=== PATIENT | male | born 1960 | race Caucasian/White ===

== ENCOUNTER 2018-11-19 11:55 | Inpatient (IN) | payer OTHER ==
[2018-11-19] MEDS ORDERED: Ketorolac INJ* 30 MG/ML 1 ML VIAL IV PUSH ONE (12:47)
[2018-11-19] MEDS ORDERED: Aspirin 81 mg CHEW TAB* 81 MG TAB.CHEW PO ONE ×2 (12:47→14:22)
[2018-11-19] MEDS ORDERED: NS 0.9% 1000 ML** 2,000 ML IV ONE (12:59)
--- NOTE | 2018-11-19 13:17 | ED ---
Dizziness - HPI Summary HPI Summary: Pt is a 58 y/o M presenting to the ED with a chief complaint of weakness. during the night, he woke up with pain that felt like heartburn that kept him up all night but eventually went away. Over the weekend, he mostly experienced pain in his back/abd, but also reports lack of concentration, nausea , decrease in appetite, and dark urine. 11/17/18, he was diaphoretic and had chills, as well as myalgias. He went to family practice where he tested negative for the flu. This morning, he went to [facility] his Rx and when he got back he was covered in sweat and felt very faint. Pt denies cough, sob, fever, rashes, joint pain, and swelling. - History Of Current Complaint Chief Complaint: EDWeakness Stated Complaint: CHEST PAIN Time Seen by Provider: 11/19/18 12:46 Hx Obtained From: Patient Onset/Duration: Gradually Timing: Intermittent Episode Lasting - minutes or hours at a time Severity Initially: Mild Severity Currently: Mild Character: Lightheaded, Weak Aggravating Factor(s): Nothing Alleviating Factor(s): Nothing Associated Signs And Symptoms: Positive: Nausea, Diaphoresis, Change In Diet - decrease, has not eaten since 11/14/18, Chills, Other: - dark urine. Negative: SOB, Fever - Allergies/Home Medications Allergies/Adverse Reactions: Allergies Allergy/AdvReac Type Severity Reaction Status Date / Time No Known Allergies Allergy Verified 06/15/18 16:00 Home Medications: Home Medications Albuterol HFA INHALER* [Ventolin HFA Inhaler*] 2 puff INH Q6H PRN 11/19/18 [ History Confirmed 11/19/18] PMH/Surg Hx/FS Hx/Imm Hx Previously Healthy: Yes Endocrine/Hematology History: Reports: Hx Diabetes - diet managed Cardiovascular History: Reports: Hx Hypertension Infectious Disease History: No Infectious Disease History: Denies: Traveled Outside the [place] in Last 30 Days - Family History Known Family History: Positive: Cardiac Disease - father and grandfather had MIs , Diabetes - Social History Alcohol Use: Rare Substance Use Type: Reports: None Smoking Status (MU): Former Smoker Review of Systems Positive: Chills, Skin Diaphoresis. Negative: Fever Negative: Shortness Of Breath, Cough Positive: Abdominal Pain, Nausea Positive: other - dark urine Positive: Myalgia. Negative: Arthralgia, Edema Negative: Rash Neurological: Other - lack of concentration Positive: Weakness All Other Systems Reviewed And Are Negative: Yes Physical Exam - Summary Physical Exam Summary: Appearance: Well-appearing, Well-nourished, lying in bed comfortably Skin: Warm, dry, no obvious rash Eyes: sclera anicteric, no conjunctival pallor ENT: mucous membranes moist, pharynx appears normal Neck: Supple, nontender Respiratory: Clear to auscultation, no signs of respiratory distress Cardiovascular: Normal S1, S2. No murmurs. Normal distal pulses in tibial and radial bilaterally. Abdomen: Soft, nontender, normal active bowel sounds present Musculoskeletal: Normal, Strength/ROM Intact Neurological: A&Ox3, awake and alert, mentation is normal, speech is fluent and appropriate Psychiatric: affect is normal, does not appear anxious or depressed Triage Information Reviewed: Yes Vital Signs On Initial Exam: Initial Vitals Temp Pulse Resp BP Pulse Ox 97.8 F 80 18 108/65 96 11/19/18 11:59 11/19/18 11:59 11/19/18 11:59 11/19/18 11:59 11/19/18 11:59 Vital Signs Reviewed: Yes Diagnostics - Vital Signs Vital Signs Temp Pulse Resp BP Pulse Ox 11/19/18 13:03 16 11/19/18 11:59 97.8 F 80 18 108/65 96 - Laboratory Result Diagrams: 11/21/18 04:34 11/21/18 04:34 Lab Statement: Any lab studies that have been ordered have been reviewed, and results considered in the medical decision making process. - Radiology chest x-ray Radiology Interpretation Completed By: Radiologist Summary of Radiographic Findings: Hyperinflation, consistent with COPD. No active cardiopulmonary disease. ED physician has reviewed this report. - EKG 1200 Cardiac Rate: NL - 83bpm EKG Rhythm: Sinus Rhythm ST Segment: Normal Ectopy: None Dizzy Course/Dx - Course Course Of Treatment: Pt is a 58 y/o M presenting to the ED with a chief complaint of weakness. 11/14/18 during the night, he woke up with abd pain that felt like heartburn that eventually went away. He mostly experienced myalgias, but also reports lack of concentration, nausea, decrease in appetite, and dark urine. 11/17/18, he was diaphoretic and had chills, as well as myalgias. He went to family practice where he tested negative for the flu. This morning, he went to [facility] his Rx and when he got back he was covered in sweat and felt very faint. Pt denies cough, sob, fever, rashes, joint pain, and swelling. EKG is NSR at 83bpm, and chest x-ray shows hyperinflation, c/w COPD. - Diagnoses Provider Diagnoses: NSTEMI (non-ST elevated myocardial infarction) - Critical Care Time Critical Care Time: 30-74 min Discharge - Sign-Out/Discharge Documenting (check all that apply): Patient Departure - Discharge Plan Condition: Stable Disposition: ADMITTED TO [facility] - Billing Disposition and Condition Condition: STABLE Disposition: Admitted to [facility] - Attestation Statements Document Initiated by Caleb: Yes Documenting Scribe: Meka York Provider For Whom Caleb is Documenting (Include Credential): Paul Rudolph MD. Scribe Attestation: Meka Dash, altheaed for Paul Rudolph MD. on 11/23/18 at 0404. Scribe Documentation Reviewed: Yes Provider Attestation: The documentation as recorded by the Meka haro accurately reflects the service I personally performed and the decisions made by , Paul Rudolph MD. Status of Scribe Document: Viewed Consult Consult: 1420 - Spoke with Dr. Marti who will be the accepting physician to [facility] [place]. 1422 - Spoke with Dr. Goel of cardiology who agrees with the pt's plan of care.
[2018-11-19 13:20] LABS: ABS Basophils 0.1 10^3/ul (0-0.2); ABS Eosinophils 0.3 10^3/ul (0-0.6); ABS Lymphocytes 1.2 10^3/ul (1.0-4.8); ABS Monocytes 1.4 10^3/ul (0-0.8); ABS Neutrophils 8.6 10^3/ul (1.5-7.7); ABS Nucleated RBC 0 10^3/ul; Eosinophil % 2.6 %; Hematocrit 43 % (42-52); Hemoglobin 14.1 g/dl (14.0-18.0); Lymphocyte % 10.1 %; Mean Corpuscular HGB Conc 33 g/dl (31-36); Mean Corpuscular Hemoglobin 31 pg (27-31); Mean Corpuscular Volume 92 fL (80-94); Mean Platelet Volume 7.5 fL (7.4-10.4); Nucleated Red Blood Cells % 0.1; Platelet Count 279 10^3/ul (150-450); Red Blood Count 4.65 10^6/ul (4.00-5.40); Red Cell Distribution Width 14 % (10.5-15); White Blood Count 11.6 10^3/ul (3.5-10.8)
[2018-11-19 13:27] LABS: INR 1.04 (0.77-1.02)
[2018-11-19 13:33] LABS: Albumin/Globulin Ratio 1.2 (1-3); BUN/Creatinine Ratio 23.4 (8-20); C Reactive Protein 262.05 mg/L (<8.01); Calcium 8.5 mg/dL (8.6-10.3); EGFR Non-African American 67.8 (>60); Globulin 3.4 g/dL (2-4); Potassium 3.4 mmol/L (3.5-5.0); Total Bilirubin 0.7 mg/dL (0.2-1.0); Total Protein 7.4 g/dL (6.4-8.9)
[2018-11-19 13:38] LABS: Troponin I 7.92 ng/mL (<0.04)
[2018-11-19] MEDS ORDERED: Heparin DRIP 25,000 UNITS(*) 25,000 UNITS/500 ML BAG IV SCH (14:30)
[2018-11-19] MEDS ORDERED: Heparin VIAL(*) 5000 UNITS/ML VIAL (FIVE THOUSAND) ONE (15:09)
[2018-11-19] MEDS ORDERED: Acetaminophen TAB* 325 MG PO PRN (15:22)
[2018-11-19] MEDS ORDERED: Ticagrelor* 90 MG TAB PO ONE (15:23)
[2018-11-19] MEDS ORDERED: NS 0.9% 1000 ML** 1,000 ML IV SCH (15:30)
[2018-11-19 16:20] LABS: HDL Cholesterol 38.6 mg/dL
[2018-11-19] MEDS ORDERED: Albuterol HFA INHALER* 8 gm MDI INH PRN (16:20)
[2018-11-19] MEDS ORDERED: Albuterol (2.5 MG) 0.5 % CONC 2.5 MG/0.5 ML NEB.SOLN (ICU and ED only) INH ONE (16:21)
[2018-11-19 16:28] LABS: Troponin I 9.05 ng/mL (<0.04)
[2018-11-19] MEDS ORDERED: Potassium Chlor TAB* 20 MEQ TAB.ER PO ONE (16:30)
--- NOTE | 2018-11-19 16:30 | ECHO ---
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 The study is technically limited due to poor parasternal windows. The study is technically limited due to the patient's smoking history. Left Ventricle: The left ventricular chamber size is normal. There are multiple regional wall motion abnormalities. There is moderate to severely decreased left ventricular systolic function. [place] and septum move best. Posterior wall akinetic and severely hypokinetic extending to the inferior region on 2 chamber view. Akinesis of the mid lateral wall $ chamber and short axis view) and hypokinesis of the anterior wall on the 2 chamber view. The estimated ejection fraction is 30-35%. Abnormal left ventricular diastolic function is observed. The basal anterior, basal inferolateral, mid anterior, mid inferior, and apical inferior wall segments are hypokinetic (score 2). The basal inferior, mid anterolateral, mid inferolateral, and apical lateral wall segments are akinetic (score 3). Overall wallmotion score index is 1.81 Left Atrium: The left atrial chamber size is normal. Right Ventricle: The right ventricular cavity size is normal. The right ventricular global systolic function is mildly reduced. Right Atrium: The right atrial cavity size is normal. Aortic Valve: The aortic valve structure is not well visualized. The aortic valve leaflets are mildly thickened. There is a trace of aortic regurgitation. There is no evidence of aortic stenosis. Mitral Valve: The mitral valve leaflets are mildly thickened. There is mild mitral regurgitation. There is no evidence of mitral stenosis. Tricuspid Valve: The tricuspid valve leaflets are normal. There is trace tricuspid regurgitation. Unable to estimate the right ventricular systolic pressure. There is no tricuspid stenosis. Pulmonic Valve: The pulmonic valve structure is not well visualized. There is no evidence of pulmonic regurgitation. There is no pulmonic stenosis. Pericardium: There is no significant pericardial effusion. A pericardial fat pad is visualized. Aorta: The ascending aorta is not well visualized. There is no dilatation of the aortic arch. There is no dilation of the aortic root. Pulmonary Artery: The main pulmonary artery is not well visualized. Venous: The inferior vena cava appears normal in size. There is a greater than 50% respiratory change in the inferior vena cava dimension. Conclusions The left ventricular chamber size is normal. There are multiple regional wall motion abnormalities. There is moderate to severely decreased left ventricular systolic function. [place] and septum move best. Posterior wall akinetic and severely hypokinetic extending to the inferior region on 2 chamber view. Akinesis of the mid lateral wall $ chamber and short axis view) and hypokinesis of the anterior wall on the 2 chamber view. The estimated ejection fraction is 30-35%. Abnormal left ventricular diastolic function is observed. The right ventricular global systolic function is mildly reduced. The aortic valve leaflets are mildly thickened with trace aortic regurgitation. There is mild mitral regurgitation. There is trace tricuspid regurgitation. No prior echo to compare. Measurements Name Value Normal Range RVIDd (AP) 2D 3.2 cm (0.9 - 2.6) RVDdMajor (2D) 2.4 cm (2.2 - 4.4) RAd ISD 4CH 4.4 cm (3.4 - 4.9) RA (A4C)W 3.9 cm (2.9 - 4.6) IVSd (2D) 1 cm (0.6 - 1) LVPWd (2D) 1 cm (0.6 - 1) LVIDd (2D) 5.4 cm (3.6 - 5.4) LVIDs (2D) 4.7 cm - LV FS (2D) 13 % (25 - 45) Aortic Annulus 1.9 cm (1.4 - 2.6) Ao root diameter (2D) 3 cm (2.1 - 3.5) Aortic arch 2.6 cm (1.8 - 3.4) LA dimension (AP) 2D 3.8 cm (2.3 - 3.8) LAd ISD 4CH 4.9 cm (2.9 - 5.3) LA ISD 4CH W 3.5 cm (2.5 - 4.5) Name Value Normal Range LA ESV BP (A/L) index 18.9 ml/m2 - Name Value Normal Range MV E-wave Vmax 1.1 m/sec - MV deceleration time 158 msec - MV A-wave Vmax 0.79 m/sec - MV E:A ratio 1.3 ratio - LV septal e' Vmax 0.07 m/sec - LV lateral e' Vmax 0.06 m/sec - LV E:e' septal ratio 15.7 ratio - LV E:e' lateral ratio 18.3 ratio - Name Value Normal Range AV Vmax 1.4 m/sec - AV VTI 22.6 cm - AV peak gradient 7 mmHg - AV mean gradient 4 mmHg - LVOT Vmax 1.1 m/sec - LVOT VTI 21.4 cm - LVOT peak gradient 5 mmHg - LVOT mean gradient 3 mmHg - NOAH Vmax 1 m/sec - Name Value Normal Range IVC diameter 1.8 cm - Name Value Normal Range PV Vmax 0.79 m/sec - Wallmotion BAS Normal BA Hypokinetic BAL Normal MARCELO Hypokinetic BI Akinetic BIS Normal MAS Normal MA Hypokinetic MAL Akinetic MIL Akinetic MS Hypokinetic MIS Normal Normal AA Normal AL Akinetic AI Hypokinetic APEX Normal
[2018-11-19] MEDS ORDERED: Heparin VIAL(*) 5000 UNITS/ML VIAL (FIVE THOUSAND) IV PRN (17:32)
[2018-11-19 17:56] LABS: Urine Appearance Clear; Urine Bilirubin Negative (Negative); Urine Blood Negative (Negative); Urine Color Yellow; Urine Glucose Negative (Negative); Urine Ketones Trace (Negative); Urine Nitrite Negative (Negative); Urine Protein Negative (Negative); Urine Specific Gravity 1.009 (1.010-1.030); Urine Urobilinogen Negative (Negative)
[2018-11-19] MEDS: Atorvastatin* 80 MG TAB PO SCH (19:06)
--- NOTE | 2018-11-19 19:16 | CONS ---
CC: Lani Lund; Hospitalist CARDIOLOGY CONSULTATION: DATE OF CONSULT: 11/19/18 REASON FOR CONSULTATION: ED called for elevated troponin. CHIEF COMPLAINT: The patient's chief complaint today is dizziness. HISTORY OF PRESENT ILLNESS: Mr. Bassett is a 58-year-old gentleman with no identified prior cardiac history. He was in his usual state of health until Saturday, 5 days ago, when he awoke with some indigestion in the middle of the night. Subsequently, he just felt a bit under the weather, like he had the flu with poor appetite and myalgias. On Saturday, he said he had chills and was sweaty, and he saw his doctor on Saturday, where they thought he might have influenza. Per verbal report from the patient, the influenza screen was negative. He was found to be wheezy, so he was given an albuterol inhaler prescription. Today, the patient and his significant other were going to get the albuterol and he became extremely dizzy, and they presented to the emergency department. In the emergency department, the patient's systolic blood pressure was in the low ranges of normal which is unusual for him and his initial troponin was elevated over 7. PAST MEDICAL HISTORY: The patient has a past medical history of: 1. Diabetes, diet controlled. 2. Hypertension. 3. Dyslipidemia, the patient self-medicates with cinnamon and niacin. 4. Probable COPD, 35-year history of smoking and inspiratory shortness of breath for the last 10 years. MEDICATIONS: Outpatient medications include: 1. Lisinopril 20 mg a day. 2. He was given a prescription, but has not started albuterol 2 puffs q.6 hours. 3. Niacin. 4. Cinnamon. ALLERGIES: He is allergic to aloe and bee stings. He has no known medication allergies. FAMILY HISTORY: Positive for early atherosclerotic heart disease in his father' s side. His father having a heart attack in early 40s and multiple male relatives on his father's side having early heart attacks. His mother's side has a history of diabetes. 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 He smoked 35 years, but stopped 10 years ago. He denies significant alcohol use or recreational drug use. He has a significant other. REVIEW OF SYSTEMS: Positive for his indigestion, feeling chills, sweats, and dizziness as above. Negative for coughing, rhinorrhea. No change in bowel or bladder habits. No recent change in medications. Prior to Saturday, no decline in exercise or functional ability. He has some chronic orthopnea, but no recent PND or change in orthopnea. No history of leg heaviness or leg pain or claudication symptoms. Recent myalgias and anorexia as above. According to his significant other, he snores a lot, has episodes of apnea, and this is longstanding. All other 14-point review of systems was negative. PHYSICAL EXAM: On exam, the patient is 5 feet 9 inches, weighs 185 pounds with a BMI of 27. Blood pressure 101/65, 92/64; pulse is 72 and regular; respiratory rate is 18; oxygen saturation on room air 95%; he is afebrile at 97.8. General Appearance: Centripetally overweight, somewhat older gentleman lying at 45 degrees appears comfortable. Skin: Warm, dry. No cyanosis or rashes appreciated. HEENT: Pupils are equal and round. Mucous membranes are moist. Neck without increased JVP. No thyromegaly or lymphadenopathy with palpable carotid pulses bilaterally. Breath sounds had diffuse inspiratory and expiratory wheezing anteriorly and posteriorly. Coronary: S1, S2 regular, but distant with no murmurs or rubs appreciated. Abdomen: Rotund. Active bowel sounds. Soft, nontender. No appreciable hepatosplenomegaly, masses, or bruits. Iliac, free of bruits. Lower Extremities: Luke warm and very difficult to get distal pulses. Lower extremities are free of edema. DIAGNOSTIC STUDIES/LABORATORY DATA: White count 11.6, hemoglobin 14.1, hematocrit 43, platelets 279, increased monos, and increased neutrophils. Sodium 134, potassium 3.4, chloride 98, bicarb 27, BUN 26, creatinine 1.1, glucose 131. Calcium mildly low at 8.5. AST 43, ALT 32. CPK 336. Troponin # 1 7.92. C- reactive protein elevated at 262. BNP of 296. A 12-lead ECG showed normal sinus rhythm, 83 beats a minute, QRS axis -90, normal AV and IV conduction times. He has diffuse nonspecific ST changes. He has inverted T waves in the inferior leads and flattened biphasic T waves in the lateral leads V4 through V6. I do not have old EKGs to compare. Chest x-ray report showed hyperinflation, but no active pulmonary disease. Echocardiogram is pending. IMPRESSION: In summary, Mr. Bassett is a 58-year-old gentleman with atherosclerotic risks of diabetes, hypertension, dyslipidemia, and family history of early atherosclerotic disease, probably obstructive sleep apnea presenting with symptoms concerning for anginal equivalent of indigestion, generalized fatigue, diaphoresis, and dizziness and his blood pressure is lower than usual. For the elevated troponin and atherosclerotic risks, I have recommended he proceed to heart catheterization. We are going get an echocardiogram to evaluate for ejection fraction, wall motion abnormalities. Additionally with his elevated C-reactive protein, it is possible he does have some infectious issue and/or pericardial effusion that could also be contributing or causing the presentation and we will evaluate for that. In the interim, I am going to get an updated lipid panel, tentatively start him on a statin, stop his niacin. He has been started on heparin drip and aspirin and I would like to cautiously beta-block him probably with atenolol because of his wheezing. I think he should be treated for his wheezing as this could be contributing to cardiac stress, but we will defer to Internal Medicine on management options. Additional recommendations will be made pending the results of his echo in response to the above stabilizing measures. We will plan on repleting potassium, adding a magnesium to his labs, and unless his ejection fraction is severely depressed, we will gently hydrate him in anticipation of cardiac catheterization. [id number]/[facility] #: [id number] ADDENDUM: Echo revealed posterior lateral and anterior wall motion abnormalities. EF approx. 35%. Plan is for cath in AM. ANTONY
--- NOTE | 2018-11-19 20:17 | HP ---
CC: Lani Lund NP; Dr. Goel; Dr. Piña * HISTORY AND PHYSICAL: DATE OF ADMISSION: 11/19/18 PRIMARY CARE PROVIDER: Lani Lund NP. CHIEF COMPLAINT: Feeling weak and tired. HISTORY OF PRESENT ILLNESS: Carson Bassett is a 58-year-old male with history of hypertension, diabetes that is diet controlled, who presented to the hospital complaining of generalized weakness. The patient stated that he developed chills and epigastric pain on Saturday, which was 5 days ago. He stated that the epigastric pain lasted overall approximately 4 hours intermittently and was relieved eventually with ibuprofen. It occurred at midnight when the patient was lying in bed. The pain did not recur. Ever since then, the patient had been complaining of fatigue and having intermittent chills. For that, he went to see his primary care provider yesterday and had a flu swab that was negative. He continued to feel weak and he came into the ED for evaluation. Here, he was noted to have troponin of 7 and EKG changes of the inferior wall. He is going to be admitted with a diagnosis of acute coronary syndrome. PAST MEDICAL HISTORY: 1. History of hypertension. 2. History of diabetes, diet controlled. PAST SURGICAL HISTORY: The patient denies any surgeries. HOME MEDICATIONS: Include: 1. Albuterol inhaler 2 puffs every 6 hours p.r.n. 2. Lisinopril 20 mg daily. ALLERGIES: Include allergy to BEE STINGS and ALOE VERA. FAMILY HISTORY: Positive for mother's side with diabetes and father who had an acute WI in his 40s. SOCIAL HISTORY: The patient has a history of 30-pack year smoking, quit in 2009. He drinks an occasional alcoholic beverage, but not daily. He denies any drug use. He lives with his , Maryse, who would be his surrogate. 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 REVIEW OF SYSTEMS: Please see history of present illness. In addition to above mentioned, the patient denies any shortness of breath. He stated that he had been wheezing ever since he quit smoking 10 years ago. The patient currently denies chest pain. All remaining 12 systems were reviewed with the patient and apart from the ones mentioned here and mentioned in history of present illness were negative. PHYSICAL EXAMINATION GENERAL: The patient is a very pleasant 58-year-old male, who is in no acute distress. Alert, awake, and oriented x3. VITAL SIGNS: Blood pressure of 102/69, heart rate of 74 and regular, respiratory rate 16, oxygen saturation 97% on room air, temperature of 99.0. HEENT: Head: Atraumatic, normocephalic. Eyes: Pupils are equal, reactive to light and accommodation. Oropharynx is clear. Mucosa moist. NECK: Supple. No JVD. No bruits bilaterally. RESPIRATORY: Occasional wheezes in bilateral mid lungs. CARDIOVASCULAR: Regular rate and rhythm. No murmur. ABDOMEN: Soft, nontender. Bowel sounds are present in all 4 quadrants. EXTREMITIES: There is no edema. Pulses are +2 bilaterally. There is no clubbing or cyanosis. NEUROLOGIC: Cranial nerves II through XII are grossly intact. Motor strength is 5/5 bilaterally. PSYCHIATRIC: The patient is pleasant and oriented x3 with no evidence of anxiety or depression. DIAGNOSTIC STUDIES/LAB DATA: Laboratory data showed sodium of 134, potassium of 3.4, chloride 98, carbon dioxide 27, BUN 26, creatinine 1.1. Liver function tests showed AST slightly high at 43, otherwise ALT was 32, alkaline phosphatase of 72. Total CPK was 336, troponin of 7.9, C-reactive protein of 262 , brain natriuretic peptide was 296. INR was 1.04, D-dimer was 326. Portable chest x-ray, impression: "Hyperinflation consistent with COPD. No active cardiopulmonary disease." The patient's EKG showed normal sinus rhythm with heart rate of 83 beats per minute with negative T-waves in leads II, III and aVF. ASSESSMENT AND PLAN: 1. A 58-year-old male with history of diabetes that is diet controlled and hypertension, presents with elevated troponin and symptoms of likely viral illness. At this point, the patient likely had acute coronary syndrome when trying to recover from viral illness. Another differential is viral myocarditis. The preliminary echocardiogram report showed inferior/posterior wall hypokinesis, which would make acute coronary syndrome in recent past more likely. I suspect the patient has had an acute myocardial infarction probably on Saturday when he had epigastric pain. At this point, Dr. Goel already consulted on the patient and discussed the case with Dr. Piña. The patient is going to be treated with Brilinta and aspirin. He is already placed on heparin drip. He is going to be placed n.p.o. in the morning for cardiac catheterization. 2. In regards to the patient's history of diabetes, the patient is going to have hemoglobin A1c obtained. He is going to be placed on fingersticks twice a day. So far, it seems that the patient's sugars had been rather well controlled with diet. 3. Fasting lipid profile is also going to be obtained in the morning. 4. The patient's elevated C-reactive protein is likely related to ongoing infection and it appears to be viral infection. The patient stated that his flu test was negative yesterday at his primary care provider's office. Nevertheless, blood cultures are going to be obtained and the patient is going to be observed. He also appears mildly dehydrated and he is going to be provided with intravenous fluids. 5. For DVT prophylaxis, the patient is going to be placed on heparin drip as above mentioned. 6. The patient's code status is full. His surrogate is his . TIME SPENT: Approximately 65 minutes were spent on admission of this patient, more than half that time was spent [id number] with the patient during the interview and physical exam. [id number]/[facility] #: [id number] ANTONY
[2018-11-19] MEDS: Ticagrelor* 90 MG TAB PO SCH (20:53)
[2018-11-20] MEDS: Ramipril CAP* 2.5 MG PO SCH ×2 (00:31→07:56)
[2018-11-20 04:52] LABS: Hematocrit 38 % (42-52); Hemoglobin 12.9 g/dl (14.0-18.0); Mean Corpuscular HGB Conc 34 g/dl (31-36); Mean Corpuscular Hemoglobin 31 pg (27-31); Mean Corpuscular Volume 92 fL (80-94); Mean Platelet Volume 7.5 fL (7.4-10.4); Platelet Count 310 10^3/ul (150-450); Red Blood Count 4.12 10^6/ul (4.00-5.40); Red Cell Distribution Width 14 % (10.5-15); White Blood Count 8.7 10^3/ul (3.5-10.8)
[2018-11-20 05:15] LABS: BUN/Creatinine Ratio 20.2 (8-20); Calcium 8.2 mg/dL (8.6-10.3); EGFR African American 113.2 (>60); EGFR Non-African American 93.5 (>60); Potassium 3.7 mmol/L (3.5-5.0)
[2018-11-20 05:21] LABS: Troponin I 9.14 ng/mL (<0.04)
[2018-11-20] MEDS: Ticagrelor* 90 MG TAB PO SCH ×2 (07:56→20:36)
[2018-11-20] MEDS: Aspirin 81 mg CHEW TAB* 81 MG TAB.CHEW PO SCH (07:56)
[2018-11-20] MEDS ORDERED: Heparin 2 UNITS/ML IVPREMIX* 2,000 ML IV ONE (08:25)
[2018-11-20] MEDS ORDERED: Lidocaine 1% INJ* 10 MG/ML 30 ML SDV ONE (08:26)
[2018-11-20] MEDS ORDERED: Iohexol 350 (CONTRAST) 200 ML MDV IV ONE ×2 (08:26→08:39)
[2018-11-20] MEDS ORDERED: Midazolam* 1 MG/ML 10 ML VIAL (10 MG) ONE (08:39)
[2018-11-20] MEDS ORDERED: fentaNYL* 50 MCG/ML 2 ML VIAL (100 MCG VIAL) ONE (08:39)
[2018-11-20] MEDS ORDERED: nitroGLYCERIN DRIP* 25,000 MCG/250 ML BTL ONE (08:39)
[2018-11-20] MEDS ORDERED: Heparin(*) 1000 UNIT/ML 10 ML VIAL CATH LAB IV ONE (08:39)
[2018-11-20] MEDS ORDERED: VERAPAMIL 2.5 MG/ML 2 ML VIAL ** 5 mg/2 ml ONE (08:39)
[2018-11-20] MEDS ORDERED: Bivalirudin(*) 250 MG VIAL ONE (09:22)
[2018-11-20] MEDS ORDERED: Nitroglycerin TAB 0.4 MG* 0.4 MG TAB SL PRN (11:46)
[2018-11-20] MEDS ORDERED: NS 0.9% 1000 ML** 400 ML IV SCH (12:00)
[2018-11-20] MEDS ORDERED: Carvedilol TAB* 6.25 MG PO SCH (12:00)
[2018-11-20] MEDS ORDERED: Metoprolol Tartrate TAB* 25 MG PO SCH (12:00)
[2018-11-20] MEDS ORDERED: NS 0.9% 1000 ML** 250 ML IV SCH (12:30)
--- NOTE | 2018-11-20 13:03 | PN ---
Subjective Date of Service: 11/20/18 Interval History: f/u NTEMI - s/p PCI today to subtotal pRCA, residual small vessel diagonal disease - No current CP or dyspnea Medications Active Medications: Acetaminophen (Tylenol Tab*) 650 mg PO Q4H PRN PRN Reason: FEVER/PAIN Albuterol (Ventolin Hfa Inhaler*) 1 puff INH Q4H PRN PRN Reason: SOB/WHEEZING Aspirin (Aspirin 81 Mg Chew Tab*) 81 mg PO DAILY [facility] Last Admin: 11/20/18 07:56 Dose: 81 mg Atorvastatin Calcium (Lipitor*) 80 mg PO 1700 [facility] Last Admin: 11/19/18 19:06 Dose: 80 mg Sodium Chloride (Ns 0.9% 1000 Ml) 250 mls @ 50 mls/hr IV .50 ML/HR FOR 5 HRS [facility] Stop: 11/20/18 17:31 Lisinopril (Prinivil Tab*) 2.5 mg PO DAILY [facility] Metoprolol Succinate (Toprol Xl Tab*) 25 mg PO BID [facility] Nitroglycerin (Nitroglycerin Tab 0.4 Mg*) 0.4 mg SL Q5M PRN PRN Reason: ANGINA Ticagrelor (Brilinta*) 90 mg PO BID [facility] Last Admin: 11/20/18 07:56 Dose: 90 mg Objective Vital Signs: Temp Pulse Resp BP Pulse Ox 99.4 F 76 19 113/69 97 11/20/18 04:00 11/20/18 12:01 11/20/18 12:01 11/20/18 12:00 11/20/18 12:01 Oxygen Devices in Use Now: None Appearance: nad, pleasant Neck: Trachea Midline Respiratory: Symmetrical Chest Expansion and Respiratory Effort, Clear to Auscultation Cardiovascular: NL Sounds; No Murmurs; No JVD, RRR, No Edema Abdominal: NL Sounds; No Tenderness; No Distention Extremities: No Edema, - - cath site not examined Skin: No Rash or Ulcers Neurological: Alert and Oriented x 3 Laboratory Results: 11/20/18 04:30 11/20/18 04:30 INR (Anticoag Therapy) 1.04 (0.77-1.02) H 11/19/18 13:05 APTT 39.1 seconds (26.0-36.3) H 11/20/18 04:30 Total Bilirubin 0.70 mg/dL (0.2-1.0) 11/19/18 13:05 AST 43 U/L (13-39) H 11/19/18 13:05 ALT 32 U/L (7-52) 11/19/18 13:05 Alkaline Phosphatase 72 U/L (34-104) 11/19/18 13:05 B-Natriuretic Peptide 296 pg/mL (<=100) H 11/19/18 13:05 Total Protein 7.4 g/dL (6.4-8.9) 11/19/18 13:05 Albumin 4.0 g/dL (3.2-5.2) 11/19/18 13:05 Globulin 3.4 g/dL (2-4) 11/19/18 13:05 Albumin/Globulin Ratio 1.2 (1-3) 11/19/18 13:05 Triglycerides 64 mg/dL 11/19/18 15:56 Cholesterol 125 mg/dL 11/19/18 15:56 LDL Cholesterol 74 mg/dL 11/19/18 15:56 HDL Cholesterol 38.6 mg/dL 11/19/18 15:56 11/19/18 11/19/18 11/19/18 13:05 15:56 19:07 Troponin I 7.92 H* 9.05 H* 8.24 H* 11/20/18 04:30 Troponin I 9.14 H* hgba1c 6.2 Diagnostic Imaging: echo this admission LVEF 35%, multiple WMA coronary angiogram 11/20/2018: s/p PCI/KARLI to subtotal proximal RCA (received collaterals from left system), residual small vessel obstructive diagonal lesions EKG Data: EKG post-PCI shows NSR 76 bpm, inferior ischemia appearing st/t depression, Assessment/Plan NTEMI - LVEF 35% - s/p PCI/KARLI to culprit pRCA - Residual diagonal disease - Continue aspirin 81 mg po daily - Continue brilinta 90 mg po bid - Start long acting metoprolol succinate 25 mg po bid (needs this and not tartrate at discharge given systolic LV dysfunction), ordered - Change ramipril to lisinopril 2.5 mg po daily (ordered) - Continue atorvastatin 80 mg po daily - If remains stable would be ok to transfer to telemetry tomorrow and anticipate discharge Saturday11/22/2018
--- NOTE | 2018-11-20 15:41 | PN ---
Subjective Date of Service: 11/20/18 Interval History: Pt is feeling well post catheterization. He is now waiting for bed rest to be up. He denies any pain in the groin. No CP or SOB. Objective Active Medications: Acetaminophen (Tylenol Tab*) 650 mg PO Q4H PRN PRN Reason: FEVER/PAIN Albuterol (Ventolin Hfa Inhaler*) 1 puff INH Q4H PRN PRN Reason: SOB/WHEEZING Aspirin (Aspirin 81 Mg Chew Tab*) 81 mg PO DAILY [facility] Last Admin: 11/20/18 07:56 Dose: 81 mg Atorvastatin Calcium (Lipitor*) 80 mg PO 1700 [facility] Last Admin: 11/19/18 19:06 Dose: 80 mg Sodium Chloride (Ns 0.9% 1000 Ml) 250 mls @ 50 mls/hr IV .50 ML/HR FOR 5 HRS [facility] Stop: 11/20/18 17:31 Lisinopril (Prinivil Tab*) 2.5 mg PO DAILY [facility] Metoprolol Succinate (Toprol Xl Tab*) 25 mg PO BID [facility] Nitroglycerin (Nitroglycerin Tab 0.4 Mg*) 0.4 mg SL Q5M PRN PRN Reason: ANGINA Ticagrelor (Brilinta*) 90 mg PO BID [facility] Last Admin: 11/20/18 07:56 Dose: 90 mg Vital Signs - 8 hr 11/20/18 11/20/18 11/20/18 08:00 08:01 08:30 Temperature Pulse Rate Respiratory 20 22 18 Rate Blood Pressure 115/72 (mmHg) O2 Sat by Pulse Oximetry 11/20/18 11/20/18 11/20/18 10:58 10:59 11:00 Temperature 99.0 F Pulse Rate 79 80 79 Respiratory 16 Rate Blood Pressure 117/78 114/74 (mmHg) O2 Sat by Pulse 98 98 97 Oximetry 11/20/18 11/20/18 11/20/18 11:01 11:46 12:00 Temperature 99.0 F Pulse Rate 79 75 Respiratory 21 16 Rate Blood Pressure 113/69 (mmHg) O2 Sat by Pulse 98 97 Oximetry 11/20/18 11/20/18 11/20/18 12:01 13:00 13:01 Temperature Pulse Rate 76 76 75 Respiratory 19 19 20 Rate Blood Pressure 118/76 (mmHg) O2 Sat by Pulse 97 97 97 Oximetry Oxygen Devices in Use Now: None Appearance: Middle aged male lying in bed, NAD Eyes: No Scleral Icterus Ears/Nose/Mouth/Throat: Mucous Membranes Moist Respiratory: Symmetrical Chest Expansion and Respiratory Effort, Clear to Auscultation - anteriorly Cardiovascular: NL Sounds; No Murmurs; No JVD, RRR, No Edema, - - R groin with sandbag in place Abdominal: NL Sounds; No Tenderness; No Distention Extremities: No Clubbing, Cyanosis Skin: No Nodules or Sclerosis Neurological: Alert and Oriented x 3 Result Diagrams: 11/20/18 04:30 11/20/18 04:30 Microbiology and Other Data: Microbiology 11/19/18 18:15 Nasal Screen MRSA (PCR) - Final Nasal Mrsa Not Detected Assess/Plan/Problems-Billing Mr Bassett is a 58 yo M who has a h/o HTN who presented to the ER with c/o fatigue and tiredness and was found to have a positive troponin. - Patient Problems (1) NSTEMI (non-ST elevated myocardial infarction) Current Visit: Yes Status: Acute Code(s): I21.4 - NON-ST ELEVATION (NSTEMI) MYOCARDIAL INFARCTION SNOMED Code(s): 89432701 Comment: Pt with troponin peak at 9.14. He underwent cath today and had 2 KARLI placed. EF is reduced at 35%. Continue lipitor, ASA, brilinta, metoprolol XL and lisinopril. Likely home on 11/22/18. (2) HTN (hypertension) Current Visit: Yes Status: Acute Code(s): I10 - ESSENTIAL (PRIMARY) HYPERTENSION SNOMED Code(s): 49131080 Comment: BP is under good control. Continue metoprolol XL and lisinopril. (3) Type II diabetes mellitus Current Visit: Yes Status: Acute Comment: Diet controlled. HbA1c is acceptable at 6.2%. (4) DVT prophylaxis Current Visit: Yes Status: Acute Code(s): LZP2780 - SNOMED Code(s): 488132718 Comment: SQ heparin to start tomorrow. (5) Patient is full code Current Visit: Yes Status: Acute Code(s): Z78.9 - OTHER SPECIFIED HEALTH STATUS SNOMED Code(s): 038766098
--- NOTE | 2018-11-20 16:25 | CATH ---
CC: Dr. Jessica Goel, [facility]; Lani Lund NP *; Enrike Streeter, * CARDIAC CATHETERIZATION REPORT AND INTERVENTIONAL REPORT: DATE OF PROCEDURE: 11/20/18 - ROOM #ICU-11 PRIMARY CARE PHYSICIAN: Lani Lund NP. INDICATIONS FOR THE PROCEDURE: Patient presents with pfj-IE-wgnktyhlp myocardial infarction with qqxhvcyy-rt-[id number] left ventricular systolic dysfunction on echocardiogram assessed for the presence of coronary artery disease. PROCEDURE: Coronary arteriography, left heart catheterization, intervention into proximal and mid right coronary artery with balloon angioplasty and placement of a 4.0 x 20 mm long Synergy stent proximally overlapped with a 4.0 x 28 mm long Synergy drug-eluting stent in the mid portion of the right coronary artery postdilated to 4.2 mm. CONSENT: The patient was interviewed and examined in the intensive care unit, where the risks and benefits were explained to him and his family. He understood them and wished to proceed. APPROACH UTILIZED: The right radial artery was initially assessed in the intensive care unit by ultrasound and found to be of an acceptable size. However, the reverse Barbeau showed very poor ulnar flow in the right radial artery area. As such, the decision was made to go from the right femoral artery approach. PRECARDIAC CATHETERIZATION LABORATORY RESULTS: Hemoglobin and hematocrit of 12.9 and 38 with a platelet count of 310,000. BUN and creatinine of 17 and 0.8 , sodium 136, potassium 3.7, chloride 105, bicarb 23. INR of 1.0. EQUIPMENT UTILIZED: 1. Right femoral artery sheath - a 11 cm 5-Ethiopian sheath initially, switched to a 6.5-Ethiopian Merit Prelude sheath for the interventional procedure. 2. Diagnostic coronary catheters included a 5-Ethiopian FL4 and FL3.5 curved catheters and a 5-Ethiopian FR4 curved catheter. 3. Guiding views were obtained utilizing a 6-Ethiopian ART 4 curved catheter with side holes. 4. Interventional wires utilized included 2 exchange length All Star guide wires. 5. Balloon angioplasty catheter utilized initially included a 1.5 x 8 mm long Over- The-Wire Emerge push balloon. 6. Stents utilized: A Synergy 4.0 x 20 mm and a Synergy 4.0 x 28 mm long drug- eluting stent. 7. Postdeployment balloon inflation catheter - a 4.0 x 12 mm long Emerge balloon. 8. The diagnostic wire utilized was a 175 J-tipped wire. 9. The closure device utilized was a 6/7-Ethiopian Mynx closure device. MEDICATIONS: Given during the procedure included intracoronary nitroglycerin, an Angiomax bolus and an Angiomax drip, the patient had already received his daily 81 mg of aspirin and Brilinta. DESCRIPTION OF PROCEDURE: Patient was brought to the cardiovascular laboratory , where formal time-out was performed. He was prepped and draped in sterile fashion. The right femoral artery area was anesthetized with 1% lidocaine and the right femoral artery was cannulated with an anterior wall only approach. The sheath was placed. Coronary arteriography was performed. Of note, the right coronary catheter did traverse into the left ventricle. Left ventricular pressure with pullback was obtained. Following this, the decision was made to attempt to intervene into the right coronary artery. Guiding views were assessed. ACT was assessed and found be subtherapeutic and as such, an Angiomax bolus and Angiomax drip were started. Guiding views were obtained with the ART 4 curved 6-Ethiopian guide catheter. Attempts were made to initially traverse the subtotally/totally occluded proximal right coronary artery and were unsuccessful with just the guide wire. A support balloon was utilized (1.5 x 8 mm long push balloon) and the lesion was able to be successfully crossed. Injection was made into just the balloon to assess to make sure the balloon was intraluminal and it was found to be so. Following this, the wire was reintroduced and the balloon was pulled back and dilated at the subtotal/totally occluded area. Following this, primary stenting was performed utilizing the 4.0 x 20 mm long Synergy drug-eluting stent proximally. Of note, nitroglycerin was given to address the mid lesion to see whether or not it was secondary to spasm. Some of it appeared to be due to spasm, but it appeared to be on a fixed lesion as despite multiple intracoronary boluses, the lesion still was present and as such, this area was also stented with the 4.0 x 28 mm long Synergy drug-eluting stent. High- pressure balloon inflations were made with a 4.0 x 12 mm long catheter at the overlapping of the stents as well as proximally. The artery was then assessed in multiple views. Following this, the catheter was removed and the sheath was removed. Hemostasis was obtained with a Mynx closure device. The total contrast utilized was 140 cc of Omnipaque dye. The radiation exposure included 21.1 minutes of fluoro time. The air kerma radiation was 2151 mGy. The DAP radiation was 12,396 microgray per meter squared. RESULTS: HEMODYNAMIC DATA: Left heart catheterization - revealed central aortic pressure recorded at 103 /61 with a mean of 80. Left ventricular pressure 103 over left ventricular end- diastolic pressure of 18. CORONARY ARTERIOGRAPHY: A. Left coronary artery: 1. Left main - the left main had mild ostial narrowing of 15% to 20%. 2. Left anterior descending artery - the left anterior descending artery supplied a thin first diagonal branch followed by a slightly larger second diagonal branch. Of note, the second diagonal branch bifurcated producing a thin lateral branch and a 95% lesion in a thin medial branch. Past this, there were several thin diagonal branches, which supplied the anterolateral region. Of note, in general, the caliber of these vessels did not appear to be of a size for intervention. 3. Circumflex artery - a nondominant vessel supplying a very thin first obtuse marginal branch with a second obtuse marginal branch that trifurcated. The continuation of circumflex in the AV groove did not supply any significant vessels. Of note, collateralization was noted to the distal right coronary artery and the PDA from septal perforators of the left anterior descending artery as well as the circumflex. B. Right coronary artery - a super dominant vessel that initially was found to be subtotally to totally occluded in its proximal portion. In some views, it appears that it may have been totally occluded with bridging collaterals filling the vessel in the proximal portion demonstrating retrograde filling towards the proximal obstruction. A possible dissection plane was seen with the filling of the proximal portion in late stages of the injection. INTERVENTION INTO SUBTOTALLY/TOTALLY OCCLUDED PROXIMAL RIGHT CORONARY ARTERY: Successful reconstitution of the right coronary artery with balloon angioplasty and stent placement utilizing the 4.0 x 20 mm long Synergy drug- eluting stent proximal, with 0% residual stenosis , ANNA III flow and no dissection seen. Once the totally occluded proximal area was opened, it revealed a significant lesion in the mid portion, which underwent stenting utilizing the longer 4.0 x 28 mm long Synergy drug-eluting stent with high- pressure balloon inflations to 4.2 mm in the overlapping stented area and proximally with 0% residual stenosis, ANNA 3 flow, and no dissection seen. The right coronary artery supplied a posterior descending artery and multiple posterior left ventricular branches. There was excellent blush and venous filling noted on prolonged injection in the right coronary artery. OVERALL ASSESSMENT: Significant coronary artery disease with probable recent total occlusion of proximal LAD with perhaps bridging collateral versus microscopic antegrade channels successfully reconstituted with treatment of sequential lesions in the right coronary artery including the proximal total occlusion as well as a mid 70 % stenosis. Of note, there still is diffuse disease noted in the left coronary artery system involving the second diagonal branch, which has a 95% lesion to a mid branch and is small in caliber, not one that at this point in time I would consider intervention on. Most of his other diagonal branches are very thin in nature as well. Aggressive medical management for his LV dysfunction will be addressed as well as reassessment of LV function at some point in time after revascularization and appropriate medical management. High-dose statin therapy has been instituted in addition to dual antiplatelet therapy. [id number]/CPS #: [id number] MTDD
[2018-11-20] MEDS: Atorvastatin* 80 MG TAB PO SCH (18:23)
[2018-11-20] MEDS: Metoprolol Succinate XL TAB* 25 MG PO SCH (20:36)
[2018-11-21 04:54] LABS: ABS Basophils 0.1 10^3/ul (0-0.2); ABS Eosinophils 0.7 10^3/ul (0-0.6); ABS Lymphocytes 1.4 10^3/ul (1.0-4.8); ABS Monocytes 1.3 10^3/ul (0-0.8); ABS Neutrophils 6.4 10^3/ul (1.5-7.7); ABS Nucleated RBC 0 10^3/ul; Eosinophil % 6.8 %; Hematocrit 36 % (42-52); Hemoglobin 12.2 g/dl (14.0-18.0); Lymphocyte % 14.1 %; Mean Corpuscular HGB Conc 34 g/dl (31-36); Mean Corpuscular Hemoglobin 31 pg (27-31); Mean Corpuscular Volume 92 fL (80-94); Mean Platelet Volume 7.3 fL (7.4-10.4); Nucleated Red Blood Cells % 0; Platelet Count 343 10^3/ul (150-450); Red Blood Count 3.93 10^6/ul (4.00-5.40); Red Cell Distribution Width 14 % (10.5-15); White Blood Count 9.8 10^3/ul (3.5-10.8)
[2018-11-21 05:06] LABS: Albumin 3.4 g/dL (3.2-5.2); Albumin/Globulin Ratio 1.1 (1-3); BUN/Creatinine Ratio 22.4 (8-20); Calcium 8.2 mg/dL (8.6-10.3); EGFR African American 111.6 (>60); EGFR Non-African American 92.3 (>60); Magnesium 2.1 mg/dL (1.9-2.7); Potassium 3.8 mmol/L (3.5-5.0); Total Bilirubin 0.6 mg/dL (0.2-1.0); Total Protein 6.4 g/dL (6.4-8.9)
[2018-11-21] MEDS: Metoprolol Succinate XL TAB* 25 MG PO SCH ×2 (07:51→21:11)
[2018-11-21] MEDS: Ticagrelor* 90 MG TAB PO SCH ×2 (07:52→21:11)
[2018-11-21] MEDS: Aspirin 81 mg CHEW TAB* 81 MG TAB.CHEW PO SCH (07:52)
--- NOTE | 2018-11-21 08:26 | PN ---
Subjective Date of Service: 11/21/18 Interval History: f/u NTEMI - No cp or dyspnea - No arrhythmias reported Medications Active Medications: Acetaminophen (Tylenol Tab*) 650 mg PO Q4H PRN PRN Reason: FEVER/PAIN Albuterol (Ventolin Hfa Inhaler*) 1 puff INH Q4H PRN PRN Reason: SOB/WHEEZING Aspirin (Aspirin 81 Mg Chew Tab*) 81 mg PO DAILY [facility] Last Admin: 11/21/18 07:52 Dose: 81 mg Atorvastatin Calcium (Lipitor*) 80 mg PO 1700 [facility] Last Admin: 11/20/18 18:23 Dose: 80 mg Lisinopril (Prinivil Tab*) 10 mg PO DAILY [facility] Metoprolol Succinate (Toprol Xl Tab*) 25 mg PO BID [facility] Last Admin: 11/21/18 07:51 Dose: 25 mg Nitroglycerin (Nitroglycerin Tab 0.4 Mg*) 0.4 mg SL Q5M PRN PRN Reason: ANGINA Ticagrelor (Brilinta*) 90 mg PO BID [facility] Last Admin: 11/21/18 07:52 Dose: 90 mg Objective Vital Signs: Temp Pulse Resp BP Pulse Ox 98.8 F 75 23 112/66 96 11/21/18 07:58 11/21/18 07:01 11/21/18 07:01 11/21/18 07:00 11/21/18 07:01 Oxygen Devices in Use Now: None Appearance: nad, pleasant Neck: Trachea Midline Respiratory: Symmetrical Chest Expansion and Respiratory Effort, Clear to Auscultation Cardiovascular: NL Sounds; No Murmurs; No JVD, RRR, No Edema Abdominal: NL Sounds; No Tenderness; No Distention Extremities: No Edema, - - cath site not examined Skin: No Rash or Ulcers Neurological: Alert and Oriented x 3 Laboratory Results: 11/21/18 04:34 11/21/18 04:34 INR (Anticoag Therapy) 1.04 (0.77-1.02) H 11/19/18 13:05 APTT 39.1 seconds (26.0-36.3) H 11/20/18 04:30 Total Bilirubin 0.60 mg/dL (0.2-1.0) 11/21/18 04:34 AST 23 U/L (13-39) 11/21/18 04:34 ALT 24 U/L (7-52) 11/21/18 04:34 Alkaline Phosphatase 73 U/L (34-104) 11/21/18 04:34 B-Natriuretic Peptide 296 pg/mL (<=100) H 11/19/18 13:05 Total Protein 6.4 g/dL (6.4-8.9) 11/21/18 04:34 Albumin 3.4 g/dL (3.2-5.2) 11/21/18 04:34 Globulin 3.0 g/dL (2-4) 11/21/18 04:34 Albumin/Globulin Ratio 1.1 (1-3) 11/21/18 04:34 Triglycerides 64 mg/dL 11/19/18 15:56 Cholesterol 125 mg/dL 11/19/18 15:56 LDL Cholesterol 74 mg/dL 11/19/18 15:56 HDL Cholesterol 38.6 mg/dL 11/19/18 15:56 hgba1c 6.2 11/19/18 11/19/18 11/19/18 13:05 15:56 19:07 Troponin I 7.92 H* 9.05 H* 8.24 H* 11/20/18 04:30 Troponin I 9.14 H* Diagnostic Imaging: echo this admission LVEF 35%, multiple WMA coronary angiogram 11/20/2018: s/p PCI/KARLI to subtotal dominant proximal RCA ( received collaterals from left system), residual small vessel obstructive diagonal lesion disease EKG Data: EKG post-PCI shows NSR 76 bpm, inferior ischemia appearing st/t depression, Assessment/Plan 1. NTEMI - LVEF 35% - s/p PCI/KARLI to culprit pRCA - Residual diagonal disease 2. DM - diet controlled 3. HTN - Continue aspirin 81 mg po daily - Continue brilinta 90 mg po bid - Continue long acting metoprolol succinate 25 mg po bid (needs this and not tartrate at discharge given systolic LV dysfunction) - Increase lisinopril from 2.5 to 10 mg po daily (home dose is 20 mg), ordered - Continue atorvastatin 80 mg po daily - Will need repeat LVEF assessment as an outpatient at some point - Can transfer to telemetry today and anticipate discharge Saturday11/22/2018 Thank you for allowing me to participate in the cardiovascular care of this patient. Please do not hesitate to contact me with questions or concerns.
[2018-11-21] MEDS ORDERED: Albuterol HFA INHALER* 8 gm MDI INH PRN (08:47)
[2018-11-21] MEDS ORDERED: Loperamide CAP* 2 MG PO PRN (09:00)
[2018-11-21] MEDS ORDERED: Lisinopril TAB* 5 MG PO SCH (09:00)
--- NOTE | 2018-11-21 09:07 | PN ---
Subjective Date of Service: 11/21/18 Interval History: Pt is feeling well. He states he is bored. He is ready to get to the floor so he is hooked up to less equipment. He denies any CP or SOB. He has minimal discomfort in his groin. He has had a few loose stools this AM and requests imodium. Objective Active Medications: Acetaminophen (Tylenol Tab*) 650 mg PO Q4H PRN PRN Reason: FEVER/PAIN Albuterol (Ventolin Hfa Inhaler*) 2 puff INH Q4H PRN PRN Reason: SOB/WHEEZING Aspirin (Aspirin 81 Mg Chew Tab*) 81 mg PO DAILY [facility] Last Admin: 11/21/18 07:52 Dose: 81 mg Atorvastatin Calcium (Lipitor*) 80 mg PO 1700 [facility] Last Admin: 11/20/18 18:23 Dose: 80 mg Lisinopril (Prinivil Tab*) 10 mg PO DAILY [facility] Loperamide HCl (Imodium Cap*) 2 mg PO .SEE DIRECTIONS PRN PRN Reason: DIARRHEA Metoprolol Succinate (Toprol Xl Tab*) 25 mg PO BID [facility] Last Admin: 11/21/18 07:51 Dose: 25 mg Nitroglycerin (Nitroglycerin Tab 0.4 Mg*) 0.4 mg SL Q5M PRN PRN Reason: ANGINA Ticagrelor (Brilinta*) 90 mg PO BID [facility] Last Admin: 11/21/18 07:52 Dose: 90 mg Vital Signs - 8 hr 11/21/18 11/21/18 11/21/18 02:00 02:01 03:00 Temperature 100.2 F Pulse Rate 63 64 69 Respiratory 20 21 20 Rate Blood Pressure 105/66 109/62 (mmHg) O2 Sat by Pulse 95 96 95 Oximetry 11/21/18 11/21/18 11/21/18 03:01 04:00 04:02 Temperature Pulse Rate 74 63 Respiratory 20 23 23 Rate Blood Pressure 103/48 (mmHg) O2 Sat by Pulse 97 96 Oximetry 11/21/18 11/21/18 11/21/18 05:00 05:01 05:47 Temperature Pulse Rate 66 69 Respiratory 16 23 17 Rate Blood Pressure 95/52 (mmHg) O2 Sat by Pulse 97 96 Oximetry 11/21/18 11/21/18 11/21/18 06:00 06:01 07:00 Temperature Pulse Rate 81 82 72 Respiratory 25 24 23 Rate Blood Pressure 101/70 112/66 (mmHg) O2 Sat by Pulse 95 95 95 Oximetry 11/21/18 11/21/18 07:01 07:58 Temperature 98.8 F Pulse Rate 75 Respiratory 23 Rate Blood Pressure (mmHg) O2 Sat by Pulse 96 Oximetry Oxygen Devices in Use Now: None Appearance: Middle aged male sitting up in bed, NAD Eyes: No Scleral Icterus Ears/Nose/Mouth/Throat: Mucous Membranes Moist Respiratory: Symmetrical Chest Expansion and Respiratory Effort, Clear to Auscultation - few bibasilar crackles Cardiovascular: NL Sounds; No Murmurs; No JVD, RRR, No Edema Abdominal: NL Sounds; No Tenderness; No Distention Extremities: No Clubbing, Cyanosis Skin: No Nodules or Sclerosis Neurological: Alert and Oriented x 3 Result Diagrams: 11/21/18 04:34 11/21/18 04:34 Microbiology and Other Data: Microbiology 11/19/18 18:15 Nasal Screen MRSA (PCR) - Final Nasal Mrsa Not Detected Assess/Plan/Problems-Billing Mr Bassett is a 58 yo M who has a h/o HTN who presented to the ER with c/o fatigue and tiredness and was found to have a positive troponin. - Patient Problems (1) NSTEMI (non-ST elevated myocardial infarction) Current Visit: Yes Status: Acute Code(s): I21.4 - NON-ST ELEVATION (NSTEMI) MYOCARDIAL INFARCTION SNOMED Code(s): 51428415 Comment: Pt with troponin peak at 9.14. He underwent cath 11/[address] Piña and had 2 KARLI placed. EF is reduced at 35%. Continue lipitor, ASA, brilinta, metoprolol XL and lisinopril. Transfer to today, increase ambulation. Home tomorrow if no issues today. (2) HTN (hypertension) Current Visit: Yes Status: Acute Code(s): I10 - ESSENTIAL (PRIMARY) HYPERTENSION SNOMED Code(s): 46065955 Comment: BP is under excellent control on current regimen. Monitor BP closely with increased dose of lisinopril today. (3) Type II diabetes mellitus Current Visit: Yes Status: Acute Comment: Diet controlled. HbA1c is acceptable at 6.2%. Nutrition consult placed by Dr. Piña. (4) DVT prophylaxis Current Visit: Yes Status: Acute Code(s): AGW6987 - SNOMED Code(s): 332096604 Comment: SQ heparin (5) Patient is full code Current Visit: Yes Status: Acute Code(s): Z78.9 - OTHER SPECIFIED HEALTH STATUS SNOMED Code(s): 739629182
[2018-11-21] MEDS: Atorvastatin* 80 MG TAB PO SCH (17:27)
[2018-11-21] MEDS: Heparin VIAL(*) 5000 UNITS/ML VIAL (FIVE THOUSAND) SUBCUT SCH (21:12)
[2018-11-22 07:24] VITALS: BP 116/70
[2018-11-22] MEDS ORDERED: Lisinopril TAB* 10 MG PO SCH (09:00)
[2018-11-22] MEDS ORDERED: Lisinopril TAB* 5 MG PO SCH (09:00)
[2018-11-22] MEDS: Heparin VIAL(*) 5000 UNITS/ML VIAL (FIVE THOUSAND) SUBCUT SCH (09:29)
[2018-11-22] MEDS: Aspirin 81 mg CHEW TAB* 81 MG TAB.CHEW PO SCH (09:39)
[2018-11-22] MEDS: Metoprolol Succinate XL TAB* 25 MG PO SCH (09:39)
[2018-11-22] MEDS: Ticagrelor* 90 MG TAB PO SCH (09:39)
--- NOTE | 2018-11-23 02:13 | DS ---
DISCHARGE SUMMARY: DATE OF ADMISSION: 11/19/18 DATE OF DISCHARGE: 11/22/18 PRIMARY DIAGNOSES: 1. Nsi-VU-krfbqeoed myocardiac infraction. 2. Hypertension. SECONDARY DIAGNOSES: 1. Diabetes. 2. Coronary artery disease. HOSPITAL COURSE: A 58-year-old male with history of hypertension, diabetes that is diet controlled, came in to the hospital with complaints of weakness and epigastric pain. CPK was noted to be 336. Troponin was noted to be 7.9. The patient was also noted to have fatigue and intermittent chills. T he differential diagnosis when the patient came in was gpq-OV-[id number] WA and possible viral myocard itis. The patient was treated for his zal-FY-afeyqjmmv WA with a heparin drip, placed on Brilinta an d aspirin and then underwent cardiac catheterization with Dr. Jacinto Piña. Please refer to the [facility] cath report for full details. The patient noted to have significant coronary artery disease with p robable recent occlusion of proximal LAD with bridging collateral versus microscopic antegrade channe ls, successfully reconstituted with treatment of sequential lesions in the right coronary artery incl uding proximal total occlusion as well as mid 70% occlusion. The patient still noted to have diffuse disease in the left coronary artery system involving the second diagonal branch, which had a 95% les ion. The patient had 2 drug-eluting stents placed. The patient stable after his cardiac catheteriza tion. EF noted to be reduced at 35%. Peak troponin was 9.14. The patient was closely monitored by the cardiology team and was seen by Dr. Streeter, Dr. Goel, and Dr. Jacinto Piña. The patient at thi s time is status post stenting to the RCA. He is being discharged on aspirin, Brilinta, metoprolol s uccinate, lisinopril, high-dose atorvastatin 80 mg. The patient would need repeat LVEF assessment as an outpatient with Cardiology. Vitals and labs noted to be stable at the time of discharge. MEDICATIONS AT THE TIME OF DISCHARGE: 1. Brilinta 90 mg p.o. b.i.d. 2. Nitroglycerin p.r.n. 3. Metoprolol XL 25 mg p.o. b.i.d. 4. Lisinopril 10 mg p.o. daily. 5. Atorvastatin 80 mg p.o. daily. 6. Aspirin 81 mg. 7. Albuterol as needed. PHYSICAL EXAMINATION: Vital Signs: Temperature 98.1, pulse 67, respiratory rate 16, oxygen saturati on 99%, blood pressure 116/70. HEENT: NCAT. Heart: S1, S2 present. Regular at the time of exam. Lungs: Clear to auscultation bilaterally. Abdomen: Soft. Extremities: No edema. Neuro: Alert, oriented. Medication list as described above. FOLLOWUP: The patient to follow up with his PCP as an outpatient. The patient to follow with Cardio logy as an outpatient. TIME SPENT: Total time spent on discharge is equal to 45 minutes. [id number]/CPS #: [id number]
== END 2018-11-22 12:15 | disposition home or self-care (01) | DRG 247 ==
LOC: ED 11:55 → ICU 17:10 → MEDTELE 11-21 13:37
PROVIDERS: ADMIT Internal Medicine; ATTEND Internal Medicine
PROC: 4A023N7 Measurement of Cardiac Sampling and Pressure, Left Heart, Percutaneous Approach (ICD-10-PCS; principal; 2018-11-19)
PROC: 027035Z Dilation of Coronary Artery, One Artery with Two Drug-eluting Intraluminal Devices, Percutaneous Approach (ICD-10-PCS; 2018-11-19)
PROC: B2111ZZ Fluoroscopy of Multiple Coronary Arteries using Low Osmolar Contrast (ICD-10-PCS; 2018-11-19)
DX: I21.4 Non-ST elevation (NSTEMI) myocardial infarction (principal); I10 Essential (primary) hypertension; E11.9 Type 2 diabetes mellitus without complications; J44.9 Chronic obstructive pulmonary disease, unspecified; I25.10 Atherosclerotic heart disease of native coronary artery without angina pectoris; Z79.02 Long term (current) use of antithrombotics/antiplatelets; Z79.82 Long term (current) use of aspirin; Z88.8 Allergy status to other drugs, medicaments and biological substances; Z91.030 Bee allergy status; Z87.891 Personal history of nicotine dependence; Z82.49 Family history of ischemic heart disease and other diseases of the circulatory system; Z83.3 Family history of diabetes mellitus; Z72.89 Other problems related to lifestyle
CPT/HCPCS: 36415; 71046; 76937; 80048; 80053; 80061; 81003; 82550; 83036; 83605; 83735; 83880; 84484; 85025; 85027; 85347; 85379; 85610; 85730; 86140; 87040; 87641; 93005; 93306; 93458; 99285; A9270-GY; C1725; C1760; C1769; C1876; C1887; C9600-RC; J0583; J1644; J1885; J2250; J3010